=== PATIENT | female | born 2000 | race Caucasian/White ===

== ENCOUNTER 2024-12-14 13:28 | Emergency (ER) | payer OTHER ==
[~2024-12-14] VITALS: Ht 175.3 cm; Wt 127.1 kg
[2024-12-14 13:34] VITALS: PULSE 76; RESP 20; TEMP 98.8; O2SAT 96
== END 2024-12-14 14:09 | disposition home or self-care (01) ==
LOC: FSED 13:33
DX: F90.9 Attention-deficit hyperactivity disorder, unspecified type (principal)
CPT/HCPCS: 80307; 81003; 93005; 99284

== ENCOUNTER 2025-01-21 13:13 | Emergency (ER) | payer OTHER ==
[~2025-01-21] VITALS: Ht 175.3 cm; Wt 126.3 kg
[2025-01-21 14:34] VITALS: PULSE 77; RESP 16; TEMP 98.3; O2SAT 97
== END 2025-01-21 14:34 | disposition home or self-care (01) ==
LOC: FSED 13:17
DX: M25.572 Pain in left ankle and joints of left foot (principal); S93.492A Sprain of other ligament of left ankle, initial encounter; X50.1XXA Overexertion from prolonged static or awkward postures, initial encounter; Y93.01 Activity, walking, marching and hiking; Y92.89 Other specified places as the place of occurrence of the external cause; E28.2 Polycystic ovarian syndrome; N97.9 Female infertility, unspecified
CPT/HCPCS: 99283